=== PATIENT | male | born 1950 ===

== ENCOUNTER 2019-03-23 14:33 | Emergency (ER) | payer MEDICARE, OTHER ==
--- NOTE | 2019-03-23 15:44 | ULT ---
Venous duplex sonogram right lower extremity HISTORY: Right leg pain and edema. FINDINGS: The right common femoral vein and greater saphenous junction were evaluated along with the femoral, deep femoral, popliteal, and posterior tibial veins. There is good color and spectral Doppler flow, compression, and augmentation. IMPRESSION: No sonographic evidence of DVT within the right lower extremity
== END 2019-03-23 15:49 | disposition home or self-care (01) ==
LOC: SCSER 14:33
DX: S76.311A Strain of muscle, fascia and tendon of the posterior muscle group at thigh level, right thigh, initial encounter (principal); E78.5 Hyperlipidemia, unspecified; Z79.899 Other long term (current) drug therapy; X50.9XXA Other and unspecified overexertion or strenuous movements or postures, initial encounter